=== PATIENT | male | born 1955 | race African-American/Black ===

== ENCOUNTER 2018-05-23 04:37 | Emergency (ER) | payer MEDICAID, OTHER ==
[~2018-05-23] VITALS: Ht 185.4 cm; Wt 89.0 kg
[~2018-05-23 04:37] MED LIST: ACET-3161; AMLO5TAB88; CARV6.2548; CYCL10TA7; IBUP-2030; LIP40; LOSA25TA12; METH500T6; OXYC-159; TADA10TA; TRAZ-213; ZOLP10TA2
[2018-05-23 05:17] VITALS: BP 106/69
[2018-05-23 05:31] LABS: BASOPHILS % 1.4 % (0.0-2.0); EOSINOPHILS % 2.5 % (0.0-5.0); HEMOGLOBIN. 12.8 g/dL (14.0-18.0); LYMPHOCYTES % 36.6 % (20.0-50.0); MEAN CORPUSCULAR HEMOGLOBIN 31.6 pg (28.0-32.0); MEAN CORPUSCULAR VOLUME 93.6 fL (80.0-94.0); MEAN PLATELET VOLUME 9.6 fl (7.4-10.4); MONOCYTES % 12.5 % (2.0-8.0); PLATELET 93 x1000/uL (130-400); RED BLOOD CELL COUNT 4.06 mill/uL (4.7-6.1); RED CELL DISTRIBUTION WIDTH 16.5 % (11.6-14.6)
[2018-05-23 05:38] LABS: CHLORIDE 111 mEq/L (98-107)
== END 2018-05-23 05:50 | disposition left against medical advice (07) ==
LOC: ER 04:37
DX: Z53.21 Procedure and treatment not carried out due to patient leaving prior to being seen by health care provider (principal); R07.9 Chest pain, unspecified; I11.0 Hypertensive heart disease with heart failure; I50.9 Heart failure, unspecified; E78.00 Pure hypercholesterolemia, unspecified; J44.9 Chronic obstructive pulmonary disease, unspecified; I25.2 Old myocardial infarction
CPT/HCPCS: 36415; 71045; 83880; 84484; 93005

== ENCOUNTER 2018-10-10 07:04 | Inpatient (IN) | payer OTHER ==
[~2018-10-10] VITALS: Ht 170.2 cm; Wt 78.9 kg
[~2018-10-10 07:04] MED LIST changes: -CARV6.2548; +CARV6.2548 PO; -CYCL10TA7; +CYCL10TA7 PO; -IBUP-2030; +IBUP-2030 PO; -LIP40; +LIP40 PO; -LOSA25TA12; +LOSA25TA26 PO; -METH500T6; +METH500T6 PO; -TADA10TA; +TADA10TA PO; -TRAZ-213; +TRAZ-213 PO; -ZOLP10TA2; +ZOLP10TA2 PO
[2018-10-10] MEDS ORDERED: ALBUTEROL (0.083%) 2.5MG/3ML NEB HHN STA (07:20)
[2018-10-10] MEDS ORDERED: IPRATROPIUM BROMIDE (0.02%) 0.5MG/2.5ML NEB HHN STA (07:20)
[2018-10-10] MEDS ORDERED: MORPHINE SULFATE 4 MG/ML CPJ (NOT FOR IM USE) IV ONE ×2 (07:30→22:09)
[2018-10-10] MEDS ORDERED: FUROSEMIDE 20MG/2ML VIAL IVP ONE (07:30)
[2018-10-10] MEDS ORDERED: ONDANSETRON HCL 4MG/2ML INJ IV ONE (07:30)
[2018-10-10 07:33] LABS: EOSINOPHILS % 2.7 % (0.0-5.0); HEMATOCRIT. 33.6 % (42.0-52.0); MEAN CORPUSCULAR HEMOGLOBIN 29.8 pg (28.0-32.0); MEAN CORPUSCULAR VOLUME 90.9 fL (80.0-94.0); MEAN PLATELET VOLUME 9.6 fl (7.4-10.4); MONOCYTES % 9.8 % (2.0-8.0); NEUTROPHILS % 69.5 % (40.0-76.0); PLATELET 134 x1000/uL (130-400); RED CELL DISTRIBUTION WIDTH 15.3 % (11.6-14.6)
[2018-10-10 07:40] LABS: CHLORIDE 104 mEq/L (98-107)
[2018-10-10 07:42] LABS: INR 1.2; PARTIAL THROMBOPLASTIN TIME 30.1 sec (23.4-31.0)
[2018-10-10] MEDS ORDERED: ENOXAPARIN 80MG/0.8ML SYR SUBCUT ONE (09:00)
[2018-10-10 09:12] LABS: CLARITY URINE CLEAR (CLEAR); COLOR URINE YELLOW (YELLOW); KETONES URINE NEGATIVE (NEGATIVE); LEUKOCYTE ESTERASE URINE NEGATIVE (NEGATIVE); NITRITE URINE NEGATIVE (NEGATIVE); OCCULT BLOOD URINE NEGATIVE (NEGATIVE); PROTEIN URINE NEGATIVE (NEGATIVE); SPECIFIC GRAVITY URINE 1.018 (1.005-1.030); UROBILINOGEN URINE 0.2 E.U./dL (0.2-1.0)
[2018-10-10 09:37] LABS: *AMPHETAMINES SCREEN URINE NEGATIVE (NEGATIVE); *BARBITURATES SCREEN URINE NEGATIVE (NEGATIVE); *BENZODIAZEPINES SCREEN URINE PRESUMTIVE POSITIVE (NEGATIVE); *COCAINE SCREEN URINE NEGATIVE (NEGATIVE); METHADONE URINE SCREEN NEGATIVE (NEGATIVE); OPIATES URINE SCREEN PRESUMTIVE POSITIVE (NEGATIVE); PHENCYCLIDINE URINE SCREEN NEGATIVE (NEGATIVE)
[2018-10-10 09:38] LABS: CANNABINOID URINE SCREEN PRESUMTIVE POSITIVE (NEGATIVE)
[2018-10-10] MEDS ORDERED: LEVOFLOXACIN 500MG PREMIX 100 ML IV ONE (10:45)
[2018-10-10] MEDS ORDERED: PIPERACILLIN/TAZ 3.375G PREMIX 50 ML IV SCH (10:45)
[2018-10-10] MEDS ORDERED: ACETAMINOPHEN 325MG TABLET PO PRN (10:45)
[2018-10-10] MEDS ORDERED: IPRATROPIUM/ALBUTEROL 0.5-3(2.5)MG/3ML NEB HHN PRN (10:45)
[2018-10-10] MEDS ORDERED: PIPERACILLIN/TAZ 3.375G PREMIX 50 ML IV ONE (10:45)
[2018-10-10] MEDS ORDERED: ONDANSETRON HCL 4MG/2ML INJ IV PRN (10:45)
[2018-10-10 12:30] VITALS: BP 101/71
[2018-10-10 13:15] VITALS: BP 101/71
[2018-10-10] MEDS ORDERED: VANCOMYCIN 1500MG in DEXTROSE 5% WATER 250ML IV NR (14:00)
[2018-10-10] MEDS ORDERED: CHOL200059 PO (14:07)
[2018-10-10] MEDS ORDERED: NITR0.4T SL (14:07)
[2018-10-10] MEDS ORDERED: ZIPR80CA2 MT (14:07)
[2018-10-10] MEDS ORDERED: DULO60CA44 MT (14:07)
[2018-10-10] MEDS ORDERED: FURO20TA4 PO (14:07)
[2018-10-10] MEDS ORDERED: ASPI-1158 PO (14:07)
[2018-10-10] MEDS ORDERED: CILO100T MT (14:07)
[2018-10-10] MEDS ORDERED: DOCU-272 PO (14:07)
[2018-10-10] MEDS ORDERED: OMEP20TA2 MT (14:07)
[2018-10-10] MEDS ORDERED: SACU1TAB MT (14:07)
[2018-10-10] MEDS ORDERED: ASPI-1154 PO (14:07)
[2018-10-10] MEDS ORDERED: ZOLP10TA2 MT (14:07)
[2018-10-10] MEDS ORDERED: ASPI-1153 PO (14:07)
[2018-10-10] MEDS ORDERED: [UNRECOGNIZED DRUG - CODE] TP (14:07)
[2018-10-10] MEDS ORDERED: HYDR-3735 MT (14:07)
[2018-10-10] MEDS ORDERED: FLUT16SP15 BOTHNSTRLS (14:07)
[2018-10-10 16:10] VITALS: BP 105/85
[2018-10-10] MEDS ORDERED: BENZONATATE 100MG CAPSULE PO PRN (16:15)
[2018-10-10] MEDS: METHYLPREDNISOLONE SOD SUCC 40 MG/ML VIAL IV SCH ×2 (16:24→22:19)
[2018-10-10] MEDS: MORPHINE SULFATE 2 MG/ML CPJ (NOT FOR IM USE) IV PRN ×2 (16:28→22:25)
[2018-10-10] MEDS: IPRATROPIUM/ALBUTEROL 0.5-3(2.5)MG/3ML NEB HHN SCH ×2 (16:46→20:00)
[2018-10-10 20:00] VITALS: BP 112/82
[2018-10-10] MEDS: ENOXAPARIN 40MG/0.4ML SYR SUBCUT SCH (20:41)
[2018-10-10] MEDS: PIPERACILLIN/TAZ 3.375G PREMIX 50 ML IV SCH (20:41)
[2018-10-10] MEDS: GUAIFENESIN 600MG ER TABLET PO SCH (21:40)
[2018-10-10] MEDS: CARVEDILOL 3.125 MG TABLET PO SCH (21:41)
[2018-10-10] MEDS ORDERED: METHYLPREDNISOLONE SOD SUCC 40 MG/ML VIAL ONE (22:08)
[2018-10-10] MEDS: VANCOMYCIN 1 G PREMIX 200 ML IV SCH (22:27)
[2018-10-11] VITALS: BP 123/85
[2018-10-11] MEDS: IPRATROPIUM/ALBUTEROL 0.5-3(2.5)MG/3ML NEB HHN SCH ×6 (00:39→20:24)
[2018-10-11] MEDS: PIPERACILLIN/TAZ 3.375G PREMIX 50 ML IV SCH ×6 (01:20→17:48)
[2018-10-11] MEDS: MORPHINE SULFATE 2 MG/ML CPJ (NOT FOR IM USE) IV PRN ×5 (02:57→20:11)
[2018-10-11 04:00] VITALS: BP 109/69
[2018-10-11] MEDS: METHYLPREDNISOLONE SOD SUCC 40 MG/ML VIAL IV SCH ×2 (05:43→14:20)
[2018-10-11 06:03] LABS: CHLORIDE 100 mEq/L (98-107)
[2018-10-11 06:20] LABS: LDL CHOLESTEROL 66 mg/dL (5-100)
[2018-10-11 06:22] LABS: HDL CHOLESTEROL 70 mg/dL (40-59)
[2018-10-11 06:26] LABS: BASOPHILS % 0.5 % (0.0-2.0); HEMATOCRIT. 32.9 % (42.0-52.0); HEMOGLOBIN. 10.7 g/dL (14.0-18.0); LYMPHOCYTES % 8.7 % (20.0-50.0); MEAN CORPUSCULAR HEMOGLOBIN 29.9 pg (28.0-32.0); MEAN CORPUSCULAR VOLUME 91.8 fL (80.0-94.0); MONOCYTES % 4.5 % (2.0-8.0); NEUTROPHILS % 86.3 % (40.0-76.0); PLATELET 120 x1000/uL (130-400); RED BLOOD CELL COUNT 3.59 mill/uL (4.7-6.1); RED CELL DISTRIBUTION WIDTH 15.1 % (11.6-14.6)
[2018-10-11] MEDS: VANCOMYCIN 1 G PREMIX 200 ML IV SCH (07:01)
[2018-10-11 08:00] VITALS: BP 113/83
[2018-10-11] MEDS: CARVEDILOL 3.125 MG TABLET PO SCH ×2 (09:42→20:48)
[2018-10-11] MEDS: LOSARTAN POTASSIUM 25 MG TABLET PO SCH (09:42)
[2018-10-11] MEDS: FUROSEMIDE 40MG/4ML VIAL IVP SCH (09:42)
[2018-10-11] MEDS: GUAIFENESIN 600MG ER TABLET PO SCH ×2 (09:42→20:48)
[2018-10-11] MEDS: HYDROCODONE/ACETAMINOPHEN 5/325MG TABLET PO PRN ×2 (11:02→17:50)
[2018-10-11] MEDS: ASPIRIN 81MG EC TABLET PO SCH (11:52)
[2018-10-11 12:50] VITALS: BP 109/71
[2018-10-11] MEDS: NICOTINE 7MG PATCH TD SCH (13:20)
[2018-10-11 16:00] VITALS: BP 105/62
[2018-10-11] MEDS: VANCOMYCIN 750 MG PREMIX 150 ML IV SCH (16:07)
[2018-10-11] MEDS: ENOXAPARIN 40MG/0.4ML SYR SUBCUT SCH (16:18)
[2018-10-11 20:00] VITALS: BP 110/60
[2018-10-12] MEDS: PIPERACILLIN/TAZ 3.375G PREMIX 50 ML IV SCH ×4 (00:05→17:16)
[2018-10-12] MEDS: MORPHINE SULFATE 2 MG/ML CPJ (NOT FOR IM USE) IV PRN ×3 (00:09→10:42)
[2018-10-12] MEDS: IPRATROPIUM/ALBUTEROL 0.5-3(2.5)MG/3ML NEB HHN SCH ×5 (00:09→15:48)
[2018-10-12] MEDS: VANCOMYCIN 750 MG PREMIX 150 ML IV SCH ×3 (02:31→17:00)
[2018-10-12 04:00] VITALS: BP 110/70
[2018-10-12 08:00] VITALS: BP 102/74
[2018-10-12] MEDS: FUROSEMIDE 40MG/4ML VIAL IVP SCH (08:21)
[2018-10-12] MEDS: GUAIFENESIN 600MG ER TABLET PO SCH (08:22)
[2018-10-12] MEDS: ASPIRIN 81MG EC TABLET PO SCH (08:22)
[2018-10-12] MEDS: HYDROCODONE/ACETAMINOPHEN 5/325MG TABLET PO PRN ×2 (08:43→14:28)
[2018-10-12 08:54] LABS: HEMATOCRIT. 35.8 % (42.0-52.0); HEMOGLOBIN. 11.4 g/dL (14.0-18.0); MEAN CORPUSCULAR HEMOGLOBIN 29.4 pg (28.0-32.0); MEAN CORPUSCULAR VOLUME 92.7 fL (80.0-94.0); MEAN PLATELET VOLUME 10.7 fl (7.4-10.4); PLATELET 128 x1000/uL (130-400); RED BLOOD CELL COUNT 3.86 mill/uL (4.7-6.1); RED CELL DISTRIBUTION WIDTH 15.7 % (11.6-14.6)
[2018-10-12] MEDS ORDERED: METHYLPREDNISOLONE SOD SUCC 40 MG/ML VIAL IV SCH (09:00)
[2018-10-12] MEDS: LOSARTAN POTASSIUM 25 MG TABLET PO SCH (09:00)
[2018-10-12] MEDS: CARVEDILOL 3.125 MG TABLET PO SCH (09:00)
[2018-10-12 09:29] LABS: CHLORIDE 99 mEq/L (98-107)
[2018-10-12] MEDS: NICOTINE 7MG PATCH TD SCH (09:45)
[2018-10-12 10:57] LABS: PLATELET ESTIMATE SLIGHTLY DECREASED
[2018-10-12 12:11] VITALS: BP 116/82
[2018-10-12 16:20] VITALS: BP 128/78
[2018-10-12 16:44] VITALS: BP 129/79
[2018-10-12 16:59] VITALS: BP 129/79
[2018-10-12] MEDS: ENOXAPARIN 40MG/0.4ML SYR SUBCUT SCH (17:00)
== END 2018-10-12 17:16 | disposition home or self-care (01) | DRG 812 ==
LOC: ER 07:04 → 7WST 10:30 → EDBEDREQTM 10:34 → EDBEDREQ 10:34 → ENRESERV 11:09
PROVIDERS: ADMIT Internal Medicine; ATTEND Internal Medicine
DX: T40.7X1A Poisoning by cannabis (derivatives), accidental (unintentional), initial encounter (principal); I50.23 Acute on chronic systolic (congestive) heart failure; J18.0 Bronchopneumonia, unspecified organism; I27.20 Pulmonary hypertension, unspecified; Z89.611 Acquired absence of right leg above knee; I11.0 Hypertensive heart disease with heart failure; J44.0 Chronic obstructive pulmonary disease with (acute) lower respiratory infection; L97.519 Non-pressure chronic ulcer of other part of right foot with unspecified severity; D64.9 Anemia, unspecified; E78.5 Hyperlipidemia, unspecified; F12.90 Cannabis use, unspecified, uncomplicated; I25.10 Atherosclerotic heart disease of native coronary artery without angina pectoris; I34.0 Nonrheumatic mitral (valve) insufficiency; I25.5 Ischemic cardiomyopathy; I73.9 Peripheral vascular disease, unspecified; J44.1 Chronic obstructive pulmonary disease with (acute) exacerbation; Z87.891 Personal history of nicotine dependence; Z95.1 Presence of aortocoronary bypass graft; T42.4X1A Poisoning by benzodiazepines, accidental (unintentional), initial encounter; T40.601A Poisoning by unspecified narcotics, accidental (unintentional), initial encounter
CPT/HCPCS: 36415; 71045; 80048; 80061; 80202; 80305; 83605; 83735; 83880; 84145; 84443; 84484; 93005; 93306; 93923; 93970; 94640; 96365; 96368; 96372; 96375; 99291; J1650; J1940; J1956; J2270; J2405; J2543; J2920; J3370; J7050; J7060; J7611; J7620

== ENCOUNTER 2018-10-13 08:26 | Inpatient (IN) | payer OTHER ==
[~2018-10-13] VITALS: Ht 175.3 cm; Wt 78.9 kg
[~2018-10-13 08:26] MED LIST changes: -ACET-3161; -AMLO5TAB88; +ASPI-1153 PO; +ASPI-1154 PO; +ASPI-1158 PO; +CHOL200059 PO; +CILO100T MT; +DOCU-272 PO; +DULO60CA44 MT; +FLUT16SP15 BOTHNSTRLS; +FURO20TA4 PO; +HYDR-3735 MT; +NITR0.4T SL; +OMEP20TA2 MT; -OXYC-159; +ZIPR80CA2 MT; +ZOLP10TA2 MT; +[UNRECOGNIZED DRUG - CODE] TP
[2018-10-13] MEDS ORDERED: SODIUM CHLORIDE 0.9% 1,000 ML IV ONE (08:48)
[2018-10-13 09:22] LABS: CLARITY URINE CLOUDY (CLEAR); COLOR URINE YELLOW (YELLOW); KETONES URINE NEGATIVE (NEGATIVE); LEUKOCYTE ESTERASE URINE NEGATIVE (NEGATIVE); NITRITE URINE NEGATIVE (NEGATIVE); OCCULT BLOOD URINE NEGATIVE (NEGATIVE); PH URINE 5.5 (4.5-8.0); PROTEIN URINE 1+ (NEGATIVE); UROBILINOGEN URINE 0.2 E.U./dL (0.2-1.0)
[2018-10-13 10:12] LABS: BASOPHILS % 0.4 % (0.0-2.0); HEMATOCRIT. 36.1 % (42.0-52.0); HEMOGLOBIN. 11.6 g/dL (14.0-18.0); LYMPHOCYTES % 9.3 % (20.0-50.0); MEAN CORPUSCULAR HEMOGLOBIN 29.8 pg (28.0-32.0); MEAN CORPUSCULAR VOLUME 92.4 fL (80.0-94.0); MEAN PLATELET VOLUME 10.2 fl (7.4-10.4); MONOCYTES % 6.7 % (2.0-8.0); NEUTROPHILS % 83.6 % (40.0-76.0); PLATELET 116 x1000/uL (130-400); RED CELL DISTRIBUTION WIDTH 16.1 % (11.6-14.6)
[2018-10-13 10:18] LABS: CHLORIDE 100 mEq/L (98-107)
[2018-10-13 10:19] LABS: INR 1.4; PROTHROMBIN TIME 14.1 sec (9.6-11.0)
[2018-10-13] MEDS ORDERED: HYDROCODONE/ACETAMINOPHEN 5/325MG TABLET PO ONE (10:45)
[2018-10-13] MEDS ORDERED: NITROGLYCERIN OINT 1GM/INCH UDPKT TD ONE (11:00)
[2018-10-13] MEDS ORDERED: CLONIDINE 0.1MG TABLET PO PRN (14:45)
[2018-10-13] MEDS ORDERED: DOCUSATE SODIUM 100MG CAPSULE PO PRN (14:45)
[2018-10-13] MEDS ORDERED: ACETAMINOPHEN 325MG TABLET PO PRN (14:45)
[2018-10-13] MEDS ORDERED: ONDANSETRON HCL 4MG/2ML INJ IV PRN (14:45)
[2018-10-13] MEDS ORDERED: IPRATROPIUM/ALBUTEROL 0.5-3(2.5)MG/3ML NEB INH PRN (14:45)
[2018-10-13] MEDS ORDERED: FUROSEMIDE 40MG/4ML VIAL IVP NR (16:30)
[2018-10-13] MEDS: FUROSEMIDE 40MG/4ML VIAL IVP SCH (16:47)
[2018-10-13] MEDS: LORAZEPAM 0.5MG TABLET PO PRN (16:47)
[2018-10-13] MEDS: HYDROCODONE/ACETAMINOPHEN 5/325MG TABLET PO PRN ×2 (16:48→21:06)
[2018-10-13] MEDS ORDERED: ZIPRASIDONE HCL 80MG CAPSULE PO SCH (17:00)
[2018-10-13] MEDS ORDERED: ZOLPIDEM TARTRATE 5MG TABLET PO PRN (20:00)
[2018-10-13 21:25] VITALS: BP 120/75
[2018-10-13] MEDS: TRAZODONE HCL 50MG TABLET PO SCH (22:38)
[2018-10-14] VITALS: BP 94/60
[2018-10-14] MEDS: HYDROCODONE/ACETAMINOPHEN 5/325MG TABLET PO PRN ×4 (02:12→23:34)
[2018-10-14 04:00] VITALS: BP 106/73
[2018-10-14] MEDS: OMEPRAZOLE 20MG CAPSULE EXTENDED RELEASE PO SCH (06:42)
[2018-10-14 06:45] LABS: BASOPHILS % 0.4 % (0.0-2.0); EOSINOPHILS % 1.1 % (0.0-5.0); HEMATOCRIT. 32.7 % (42.0-52.0); HEMOGLOBIN. 10.8 g/dL (14.0-18.0); LYMPHOCYTES % 22.9 % (20.0-50.0); MEAN CORPUSCULAR HEMOGLOBIN 30.4 pg (28.0-32.0); MEAN CORPUSCULAR VOLUME 92.1 fL (80.0-94.0); MEAN PLATELET VOLUME 10.4 fl (7.4-10.4); MONOCYTES % 7.4 % (2.0-8.0); NEUTROPHILS % 68.2 % (40.0-76.0); PLATELET 102 x1000/uL (130-400); RED BLOOD CELL COUNT 3.55 mill/uL (4.7-6.1); RED CELL DISTRIBUTION WIDTH 15.8 % (11.6-14.6)
[2018-10-14 06:57] LABS: CHLORIDE 100 mEq/L (98-107)
[2018-10-14 07:09] LABS: LDL CHOLESTEROL 59 mg/dL (5-100)
[2018-10-14 07:10] LABS: TOTAL IRON BINDING CAPACITY 365 ug/dL (250-450)
[2018-10-14 07:11] LABS: HDL CHOLESTEROL 58 mg/dL (40-59)
[2018-10-14 07:31] LABS: *AMPHETAMINES SCREEN URINE NEGATIVE (NEGATIVE); *BARBITURATES SCREEN URINE NEGATIVE (NEGATIVE); *BENZODIAZEPINES SCREEN URINE NEGATIVE (NEGATIVE); METHADONE URINE SCREEN NEGATIVE (NEGATIVE)
[2018-10-14 07:32] LABS: CANNABINOID URINE SCREEN PRESUMTIVE POSITIVE (NEGATIVE); OPIATES URINE SCREEN PRESUMTIVE POSITIVE (NEGATIVE); PHENCYCLIDINE URINE SCREEN NEGATIVE (NEGATIVE)
[2018-10-14 07:36] LABS: *COCAINE SCREEN URINE NEGATIVE (NEGATIVE)
[2018-10-14] MEDS: ZIPRASIDONE HCL 80MG CAPSULE PO SCH ×2 (07:40→17:40)
[2018-10-14 08:00] VITALS: BP 110/83
[2018-10-14] MEDS: CARVEDILOL 6.25 MG TABLET PO SCH (08:19)
[2018-10-14] MEDS: DULOXETINE HCL 60MG DR CAPSULE PO SCH (08:19)
[2018-10-14] MEDS: ASPIRIN 81MG TABLET PO SCH (08:19)
[2018-10-14] MEDS: METHOCARBAMOL 500MG TABLET PO SCH (08:19)
[2018-10-14] MEDS: FUROSEMIDE 40MG/4ML VIAL IVP SCH (08:20)
[2018-10-14] MEDS: FLUTICASONE PROPIONATE 50MCG/SPRAY BOTTLE BOTHNSTRLS SCH (08:31)
[2018-10-14] MEDS: ASPIRIN/ACETAMINOPHEN/CAFFEINE 250/250/65MG TABLET PO SCH (08:31)
[2018-10-14 11:30] LABS: HEPATITIS B SURFACE ANTIGEN NEGATIVE
[2018-10-14 11:35] VITALS: BP 108/75
[2018-10-14 12:00] LABS: HEPATITIS A AB IGM NEGATIVE (NEGATIVE)
[2018-10-14 16:04] VITALS: BP 107/80
[2018-10-14 20:00] VITALS: BP 112/61
[2018-10-14] MEDS: TRAZODONE HCL 50MG TABLET PO SCH (20:42)
[2018-10-14] MEDS: LORAZEPAM 0.5MG TABLET PO PRN (23:34)
[2018-10-15] VITALS: BP 105/72
[2018-10-15 04:00] VITALS: BP 111/79
[2018-10-15] MEDS: OMEPRAZOLE 20MG CAPSULE EXTENDED RELEASE PO SCH (06:46)
[2018-10-15 07:17] LABS: BASOPHILS % 0.2 % (0.0-2.0); EOSINOPHILS % 2.7 % (0.0-5.0); HEMATOCRIT. 33.9 % (42.0-52.0); HEMOGLOBIN. 11.3 g/dL (14.0-18.0); LYMPHOCYTES % 27.5 % (20.0-50.0); MEAN CORPUSCULAR HEMOGLOBIN 30.5 pg (28.0-32.0); MEAN CORPUSCULAR VOLUME 91.6 fL (80.0-94.0); MEAN PLATELET VOLUME 10.8 fl (7.4-10.4); MONOCYTES % 10.4 % (2.0-8.0); NEUTROPHILS % 59.2 % (40.0-76.0); PLATELET 102 x1000/uL (130-400); RED CELL DISTRIBUTION WIDTH 15.7 % (11.6-14.6)
[2018-10-15] MEDS: ZIPRASIDONE HCL 80MG CAPSULE PO SCH ×2 (07:40→17:31)
[2018-10-15 07:44] LABS: CHLORIDE 102 mEq/L (98-107)
[2018-10-15 08:00] VITALS: BP 110/79
[2018-10-15 08:07] LABS: HIV SCREEN 4G Non Reactive (Non Reactive)
[2018-10-15] MEDS: ASPIRIN/ACETAMINOPHEN/CAFFEINE 250/250/65MG TABLET PO SCH (09:00)
[2018-10-15] MEDS: CARVEDILOL 6.25 MG TABLET PO SCH (09:00)
[2018-10-15] MEDS: FLUTICASONE PROPIONATE 50MCG/SPRAY BOTTLE BOTHNSTRLS SCH (09:00)
[2018-10-15] MEDS: ASPIRIN 81MG TABLET PO SCH (09:44)
[2018-10-15] MEDS: FUROSEMIDE 40MG/4ML VIAL IVP SCH (09:44)
[2018-10-15] MEDS: DULOXETINE HCL 60MG DR CAPSULE PO SCH (09:44)
[2018-10-15] MEDS: METHOCARBAMOL 500MG TABLET PO SCH (09:44)
[2018-10-15 11:58] VITALS: BP 114/78
[2018-10-15 16:00] VITALS: BP 122/68
[2018-10-15] MEDS: LORAZEPAM 0.5MG TABLET PO PRN (18:33)
[2018-10-15] MEDS: HYDROCODONE/ACETAMINOPHEN 5/325MG TABLET PO PRN (18:39)
[2018-10-15] MEDS ORDERED: FAMOTIDINE 20MG TABLET PO SCH (21:00)
[2018-10-15 21:55] VITALS: BP 117/82
[2018-10-15] MEDS: TRAZODONE HCL 50MG TABLET PO SCH (22:30)
== END 2018-10-15 23:08 | disposition short-term general hospital (02) | DRG 194 ==
LOC: ER 08:26 → 8WST 08:52 → EDBEDREQ 13:06 → CANRESERV 19:37 → ENRESERV 19:37
PROVIDERS: ADMIT Internal Medicine; ATTEND Internal Medicine
DX: I11.0 Hypertensive heart disease with heart failure (principal); D68.9 Coagulation defect, unspecified; D69.6 Thrombocytopenia, unspecified; E87.5 Hyperkalemia; I50.22 Chronic systolic (congestive) heart failure; I73.9 Peripheral vascular disease, unspecified; D64.9 Anemia, unspecified; I25.10 Atherosclerotic heart disease of native coronary artery without angina pectoris; B17.9 Acute viral hepatitis, unspecified; J44.9 Chronic obstructive pulmonary disease, unspecified; Z59.0 Homelessness; Z95.1 Presence of aortocoronary bypass graft; I25.2 Old myocardial infarction; Z87.891 Personal history of nicotine dependence; Z89.511 Acquired absence of right leg below knee; Z79.82 Long term (current) use of aspirin
CPT/HCPCS: 36415; 71045; 76700; 80048; 80061; 80305; 82728; 83036; 83540; 83550; 83880; 84145; 84484; 86705; 86709; 86803; 87340; 87389; 93005; 96374; 99285; J1940; J7030